=== PATIENT | female | born 1995 | race African-American/Black ===

== ENCOUNTER 2025-08-18 04:29 | Emergency (ER) | payer OTHER ==
[~2025-08-18] VITALS: Ht 175.3 cm; Wt 79.0 kg
[2025-08-18 04:34] VITALS: BP 176/118; PULSE 104; RESP 16; TEMP 98.6; O2SAT 96
== END 2025-08-18 06:32 | disposition left against medical advice (07) ==
LOC: EMS 04:34
DX: M79.644 Pain in right finger(s) (principal); Z53.21 Procedure and treatment not carried out due to patient leaving prior to being seen by health care provider
CPT/HCPCS: 99281; Z7502